=== PATIENT | male | born 1960 | race Caucasian/White ===

== ENCOUNTER 2018-11-25 09:21 | Day surgery (SDC) | payer BC ==
[2018-11-24 15:00] LABS: Absolute Monocytes 0.5 K/uL (0.1-1.3); Absolute Neutrophil 3.6 K/uL (1.8-8.0); Basophils % 0.6 % (0-1.3); Eosinophils % 1.8 % (0-4.4); Hematocrit 41.2 % (39.6-49.0); Lymphocytes % 31.7 % (15.3-44.8); MPV 7.1 fL (7.6-11.3); Monocytes % 7.8 % (3.3-12.3); RBC Red Blood Cell Count 4.47 M/uL (4.33-5.43)
[2018-11-25] MEDS ORDERED: Ringers Lactate 1,000 ML IV ONE (09:41)
[2018-11-25] MEDS ORDERED: CEFAZOLIN/SWI 1gm 1 GM/10 ML SYR ONE (09:41)
[2018-11-25] MEDS ORDERED: LIDOCAINE 1% MPF 30 ML VIAL ONE (10:03)
[2018-11-25] MEDS ORDERED: MIDAZOLAM HCL 2 MG/2 ML INJ ONE (10:46)
[2018-11-25] MEDS ORDERED: PROPOFOL 200 MG/20 ML VIAL IV ONE ×2 (10:51→11:07)
[2018-11-25] MEDS ORDERED: LIDOCAINE 2% MPF 5 ML VIAL ONE (10:52)
[2018-11-25] MEDS ORDERED: CODEINE 30MG/APAP 300MG TAB PO ONE (11:35)
[2018-11-25] MEDS ORDERED: CODEINE 30MG/APAP 300MG TAB ONE (11:48)
--- NOTE | 2018-11-25 13:56 | OP ---
Date of Procedure: 11/25/2018 Surgeon: Branden Hendricks MD Preoperative Diagnosis: Rectal cancer. Postoperative Diagnosis: Rectal cancer. Procedure: Removal of right chest Port-A-Cath. Estimated Blood Loss: Minimal. Specimen: Port-A-Cath device. Anesthesia: MAC. Complications: None. Disposition: The patient tolerated the procedure in stable condition, taken to Recovery in good gene ral condition. Procedure In Detail: The patient was brought to the OR and placed in supine position. MAC anesthesi a was begun. The patient was prepped and draped in usual sterile fashion. Lidocaine 1% infiltrated locally. A 15-blade was used to make a 3 cm incision over the Port-A-Cath device. Port-A-Cath devic e identified and freed from the surrounding tissue with sharp and blunt dissection. Removed and sent to pathology for identification. Wound irrigated. Bleeding controlled with cautery. A 3-0 chromic used to approximate the subcutaneous tissue and closed skin. Sterile dressing was applied. The pat ient was awakened and taken to Recovery in good general condition. Discharge Note: The patient will go to day surgery and home when stable. Disposition: Home. Condition: Stable. Discharge Instructions: Resume home medications and diet. Activity as tolerated. No heavy lifting. Remove outer dressing in 2 days. Shower. Keep wound clean, dry. Keep Steri-Strips on at all time s. Tylenol No. 3 one tablet p.o. q.4 p.r.n. pain. Follow up in my office in 2 weeks. Call for appo huong. OBDULIO/LAQUITA Voice ID: [id number] Report ID: [id number]
== END 2018-11-25 12:02 | disposition home or self-care (01) ==
LOC: OR 09:21
PROVIDERS: ATTEND Surgery
PROC: 0JPT3XZ Removal of Tunneled Vascular Access Device from Trunk Subcutaneous Tissue and Fascia, Percutaneous Approach (ICD-10-PCS; principal; 2018-11-25 10:30)
DX: Z45.2 Encounter for adjustment and management of vascular access device (principal); Z85.038 Personal history of other malignant neoplasm of large intestine; Z98.0 Intestinal bypass and anastomosis status; Z85.048 Personal history of other malignant neoplasm of rectum, rectosigmoid junction, and anus
CPT/HCPCS: 36415; 85025; 88300; J0690; J2250; J2704